=== PATIENT | female | born 1965 | race Caucasian/White ===

== ENCOUNTER 2017-08-18 16:50 | Emergency (ER) | payer OTHER ==
[2017-08-18] MEDS: IBUPROFEN 800 MG TAB PO (18:00)
== END 2017-08-18 18:41 | disposition home or self-care (01) ==
LOC: FTE 16:50
DX: S09.90XA Unspecified injury of head, initial encounter (principal); R51 Headache; F17.210 Nicotine dependence, cigarettes, uncomplicated; I10 Essential (primary) hypertension; W01.198A Fall on same level from slipping, tripping and stumbling with subsequent striking against other object, initial encounter; Y92.9 Unspecified place or not applicable
CPT/HCPCS: 70450; 70486; 99285-25